=== PATIENT | male | born 1955 | race Hispanic/Latino ===

== ENCOUNTER 2022-09-14 10:50 | Emergency (ER) | payer OTHER ==
[~2022-09-14] VITALS: Ht 175.3 cm; Wt 90.7 kg
[2022-09-14] MEDS ORDERED: ONDANSETRON HCL INJ 2MG/ML 2ML 2 MG/ML VIAL IV STA (10:55)
[2022-09-14] MEDS ORDERED: SODIUM CHLORIDE 0.9% 1000ML 1,000 ML IV ONE (11:00)
[2022-09-14] MEDS ORDERED: Morphine 4mg INJECTION 4 MG/ML INJ IV ONE (11:00)
[2022-09-14 11:21] LABS: BASOPHILS # (AUTO) 0.1 (0.0-0.1); BASOPHILS % 0.5 % (0.0-1.0); EOSINOPHILS % 0.1 % (0.0-6.0); HEMATOCRIT 48.9 % (38.2-49.6); HEMOGLOBIN 15.8 g/dL (14.0-18.0); LYMPHOCYTES # (AUTO) 1.7 (1.0-3.2); LYMPHOCYTES % 16.4 % (18.0-39.1); MEAN CORPUSCULAR HEMOGLOBIN 30.9 pg (28-32); MEAN CORPUSCULAR HGB CONC 32.3 g/dL (31-35); MEAN CORPUSCULAR VOLUME 95.7 fL (81-99); MONOCYTES # (AUTO) 0.4 (0.2-0.8); MONOCYTES % 4.1 % (4.4-11.3); NEUTROPHILS # (AUTO) 8.1 (2.1-6.9); NEUTROPHILS % 78.5 % (38.7-80.0); PLATELET COUNT 198 x10e3/uL (140-360); RED BLOOD COUNT 5.11 x10e6/uL (4.3-5.7); RED CELL DISTRIBUTION WIDTH 11.9 % (11.7-14.4)
[2022-09-14 11:25] LABS: CLARITY,URINE CLEAR (CLEAR); COLOR,URINE YELLOW (YELLOW)
[2022-09-14 11:26] LABS: KETONES,URINE 2+ (NEGATIVE); LEUKOCYTE ESTERASE ,URINE NEGATIVE (NEGATIVE); NITRITE,URINE NEGATIVE (NEGATIVE); PROTEIN,URINE DIPSTICK 2+ (NEGATIVE); URINE UROBILINOGEN 0.2 mg/dL (0.2 - 1)
[2022-09-14 11:36] LABS: BACTERIA,URINE FEW /HPF; EPITHELIAL CELLS,URINE RARE /LPF; RBC,URINE 0-5 /HPF (0-5); WBC,URINE (MAN) 0-5 /HPF (0-5)
[2022-09-14 11:40] LABS: ALBUMIN 4.3 g/dL (3.5-5.0); ALBUMIN/GLOBULIN RATIO 1.3 (0.8-2.0); ANION GAP 17.9 mmol/L (8-16); CREATININE, SERUM 0.93 mg/dL (0.72-1.25); POTASSIUM 3.9 mmol/L (3.5-5.1)
[2022-09-14] MEDS ORDERED: IOPAMIDOL 370 MG/ML 100 ML INFUS..BTL INJ ONE (12:02)
[2022-09-14] MEDS ORDERED: ONDANSETRON ODT4 MG PO (13:57)
[2022-09-14] MEDS ORDERED: HYDROCODON-ACE1 EA11 PO (13:57)
[2022-09-14] MEDS ORDERED: DOCUSATE SODIU100 M1 PO (13:57)
[2022-09-14 14:26] VITALS: BP 157/87
== END 2022-09-14 14:29 | disposition home or self-care (01) ==
LOC: ER 10:55
DX: R10.32 Left lower quadrant pain (principal); R19.09 Other intra-abdominal and pelvic swelling, mass and lump; R11.0 Nausea; K57.90 Diverticulosis of intestine, part unspecified, without perforation or abscess without bleeding; N40.0 Benign prostatic hyperplasia without lower urinary tract symptoms; R94.31 Abnormal electrocardiogram [ECG] [EKG]
CPT/HCPCS: 36415; 74177; 80053; 81001; 83690; 85025; 93005; 94760; 99284; J2270; J2405; J7030; Q9967